=== PATIENT | female | born 1930 | race Hispanic/Latino ===

== ENCOUNTER → 2020-04-25 | Outpatient (CLI) | payer MEDICARE ==
[2020-04-25 15:56] LABS: CREATININE 0.7 mg/dL (0.5-1.5)
== END | disposition home or self-care (01) ==
LOC: RAH 10:00
PROVIDERS: ATTEND Internal Medicine Cardiovascular Disease
DX: I71.4 Abdominal aortic aneurysm, without rupture (principal)
CPT/HCPCS: 36415; 82565; 84520

== ENCOUNTER → 2020-04-27 | Outpatient (CLI) | payer MEDICARE ==
[~2020-04-27] MED LIST: IOHEXOL-350 75 ML VIAL IV ONE
== END | disposition home or self-care (01) ==
LOC: RAH 07:40
PROVIDERS: ATTEND Internal Medicine Cardiovascular Disease
DX: I71.4 Abdominal aortic aneurysm, without rupture (principal); N28.1 Cyst of kidney, acquired; J98.11 Atelectasis; I51.7 Cardiomegaly; K57.30 Diverticulosis of large intestine without perforation or abscess without bleeding; M47.815 Spondylosis without myelopathy or radiculopathy, thoracolumbar region
CPT/HCPCS: 74174; Q9967

== ENCOUNTER → 2020-05-16 | Outpatient (CLI) | payer MEDICARE ==
[~2020-05-16] VITALS: Ht 146.1 cm; Wt 49.7 kg
[~2020-05-16] MED LIST changes: +AEC81 PO; +CLOP75TA14 PO; +CLOPIDOGREL BISULFATE 300 MG TAB ONE; +DENO60DI SQ; -IOHEXOL-350 75 ML VIAL IV ONE; +OMEP20TA25 PO; +OS500 PO; +SERT25TA PO; +SERT50TA PO; +SODIUM CHLORIDE 0.9% 500ML 500 ML IV SCH; +TYLENOL ARTHRITIS PO; +VITAMIN D PO
[2020-05-16 09:32] LABS: BASOPHILS % (AUTO) 0.4 % (0.0-5.0); EOSINOPHILS % (AUTO) 1.4 % (0.0-8.0); HEMATOCRIT 38.2 % (36-48); LYMPHOCYTES % (AUTO) 24.5 % (21.0-51.0); MEAN CORPUSCULAR HEMOGLOBIN 26.5 pg (27.0-33.0); MEAN CORPUSCULAR HGB CONC 30.9 g/dL (32.0-36.0); MEAN CORPUSCULAR VOLUME 85.8 fL (79-99); MONOCYTES % (AUTO) 11.6 % (3.0-13.0); NEUTROPHILS % (AUTO) 61.7 % (40.0-77.0); PLATELET COUNT (AUTO) 160 K/uL (130-400); RED BLOOD CELL COUNT(AUTO) 4.45 MIL/uL (4.00-5.50); RED CELL DISTRIBUTION WIDTH 15.3 % (11.0-15.5)
[2020-05-16 09:42] LABS: APPEARANCE,URINE Clear (CLEAR); BILIRUBIN,URINE Negative (NEGATIVE); COLOR,URINE Yellow (YELLOW); GLUCOSE, URINE (UA) Negative (NEGATIVE); KETONES,URINE Negative (NEGATIVE); LEUKOCYTE ESTERASE ,URINE Moderate (NEGATIVE); NITRATE,URINE Negative (NEGATIVE); OCCULT BLOOD,URINE Negative (NEGATIVE); PH,URINE 6.5 (5.0-8.0); PROTEIN,URINE Negative (NEGATIVE); UROBILINOGEN,URINE 0.2 mg/dL (0.2-1.0)
[2020-05-16 09:44] LABS: CREATININE 0.5 mg/dL (0.5-1.5)
[2020-05-16 09:57] LABS: RBC,URINE 0-1 /HPF (0-1); WBC,URINE 0-1 /HPF (0-1)
[2020-05-16 09:58] LABS: BACTERIA,URINE Rare /HPF (None Seen); SQUAMOUS EPITHELIAL CELL,UR Rare /HPF (0-2)
[2020-05-16 10:02] LABS: INR 0.92 (0.85-1.15); PARTIAL THROMBOPLASTIN TIME 26.4 SEC (26.3-35.5)
[2020-05-18 10:03] VITALS: BP 151/82
--- NOTE | 2020-05-18 11:18 | NUR ---
ABNORMAL LABS REPORTED TO DR MORALES OFFICE
== END | disposition home or self-care (01) ==
LOC: EDSTATUS 08:00 → DAH 10:00
PROVIDERS: ATTEND Internal Medicine Cardiovascular Disease
DX: Z01.812 Encounter for preprocedural laboratory examination (principal); Z20.828 Contact with and (suspected) exposure to other viral communicable diseases
CPT/HCPCS: 36415; 71045; 80048; 81001; 85025; 85610; 85730; 86850; 86900; 86901; 87088; 93005; U0003; J7040

== ENCOUNTER 2020-05-18 21:15 | Inpatient (IN) | payer MEDICARE ==
[~2020-05-18] VITALS: Ht 149.9 cm; Wt 54.3 kg
[~2020-05-18 21:15] MED LIST changes: -AEC81 PO; -CLOP75TA14 PO; -CLOPIDOGREL BISULFATE 300 MG TAB ONE; -SODIUM CHLORIDE 0.9% 500ML 500 ML IV SCH
[2020-05-18 21:51] LABS: BASOPHILS % (AUTO) 0.4 % (0.0-5.0); EOSINOPHILS % (AUTO) 0.6 % (0.0-8.0); HEMATOCRIT 36.5 % (36-48); LYMPHOCYTES % (AUTO) 18.3 % (21.0-51.0); MEAN CORPUSCULAR HEMOGLOBIN 27.2 pg (27.0-33.0); MEAN CORPUSCULAR HGB CONC 31.8 g/dL (32.0-36.0); MEAN CORPUSCULAR VOLUME 85.7 fL (79-99); MONOCYTES % (AUTO) 7.3 % (3.0-13.0); NEUTROPHILS % (AUTO) 72.9 % (40.0-77.0); PLATELET COUNT (AUTO) 164 K/uL (130-400); RED BLOOD CELL COUNT(AUTO) 4.26 MIL/uL (4.00-5.50); RED CELL DISTRIBUTION WIDTH 15.7 % (11.0-15.5); WHITE BLOOD COUNT (AUTO) 7.8 K/uL (4.8-10.8)
[2020-05-18 21:57] LABS: INR 0.93 (0.85-1.15); PARTIAL THROMBOPLASTIN TIME 24.7 SEC (26.3-35.5); PROTHROMBIN TIME 10.1 SEC (9.6-11.6)
[2020-05-18 22:20] LABS: CREATININE 0.7 mg/dL (0.5-1.5); POTASSIUM 3.5 mmol/L (3.5-5.1)
[2020-05-18 22:25] LABS: ALBUMIN 3.6 g/dL (3.5-5.0); BILIRUBIN,TOTAL 0.2 mg/dL (0.2-1.0); TOTAL PROTEIN, SERUM 7.1 g/dL (6.0-8.3)
[2020-05-18] MEDS: SODIUM CHLORIDE 0.9% 1000ML 1,000 ML IV SCH (22:36)
[2020-05-18] MEDS ORDERED: GUAIFENESIN-DM 200/20 MG 10 ML PO PRN (22:45)
[2020-05-18] MEDS ORDERED: NITROGLYCERIN 0.4 MG SL TAB SL PRN (22:45)
[2020-05-18] MEDS ORDERED: MAG HYDROX/AL HYDROX/SIMETH 30 ML, LIDOCAINE HCL 2% VISCOUS 30 ML, DIPHENHYDRAMINE HCL ... PO PRN ×3 (22:45)
[2020-05-18] MEDS ORDERED: DiphenhydrAMINE HCL 50 MG/ML VIAL IV PRN (22:45)
[2020-05-18] MEDS ORDERED: ACETAMINOPHEN 325 MG TAB PO PRN (22:45)
[2020-05-18] MEDS ORDERED: LACTULOSE 20 GM/30 ML UDCUP PO PRN (22:45)
[2020-05-18] MEDS ORDERED: MAG HYDROX/AL HYDROX/SIMETH ES 30 ML SUSP UDCUP PO PRN (22:45)
[2020-05-18] MEDS ORDERED: DIPHENHYDRAMINE HCL 25 MG CAPSULE PO PRN (22:45)
[2020-05-18] MEDS ORDERED: LIDOCAINE HCL 2% VISCOUS 30 ML, MAG HYDROX/AL HYDROX/SIMETH 30 ML, BELLADONNA-PHENOBARB... PO PRN ×3 (22:45)
[2020-05-18] MEDS ORDERED: ZOLPIDEM TARTRATE 5 MG TAB PO PRN (22:45)
[2020-05-18] MEDS ORDERED: ONDANSETRON HCL 4 MG/2 ML VIAL IV PRN (22:45)
[2020-05-19] VITALS (14 sets, daily range): BP systolic 94–130; BP diastolic 44–60
[2020-05-19 04:24] LABS: BASOPHILS % (AUTO) 0.3 % (0.0-5.0); EOSINOPHILS % (AUTO) 1.4 % (0.0-8.0); HEMATOCRIT 36.9 % (36-48); LYMPHOCYTES % (AUTO) 26.4 % (21.0-51.0); MEAN CORPUSCULAR HEMOGLOBIN 26.5 pg (27.0-33.0); MEAN CORPUSCULAR HGB CONC 30.9 g/dL (32.0-36.0); MEAN CORPUSCULAR VOLUME 85.8 fL (79-99); MONOCYTES % (AUTO) 9.8 % (3.0-13.0); NEUTROPHILS % (AUTO) 61.6 % (40.0-77.0); PLATELET COUNT (AUTO) 157 K/uL (130-400); RED CELL DISTRIBUTION WIDTH 15.7 % (11.0-15.5); WHITE BLOOD COUNT (AUTO) 6.5 K/uL (4.8-10.8)
[2020-05-19 04:45] LABS: ALBUMIN 3.2 g/dL (3.5-5.0); BILIRUBIN,TOTAL 0.2 mg/dL (0.2-1.0); CREATININE 0.5 mg/dL (0.5-1.5); MAGNESIUM 1.9 mg/dL (1.80-2.40); PHOSPHORUS 2.9 mg/dL (2.5-4.9); POTASSIUM 3.5 mmol/L (3.5-5.1); TOTAL PROTEIN, SERUM 6.6 g/dL (6.0-8.3)
[2020-05-19] MEDS ORDERED: LIDOCAINE HCL 2% 20ML ONE (07:15)
[2020-05-19] MEDS ORDERED: SODIUM BICARB 50MEQ 50ML VIAL ONE (07:15)
[2020-05-19] MEDS ORDERED: HEPARIN SODIUM 1000UNIT/ML 10ML VIAL ONE (07:15)
[2020-05-19] MEDS ORDERED: IODIXANOL 320 MG/ML 100 ML VIAL ONE (07:27)
[2020-05-19] MEDS ORDERED: DEXAMETHASONE SOD PHOSPHATE 10MG/ML 1ML VIAL ONE (07:47)
[2020-05-19] MEDS ORDERED: LIDOCAINE PF 2% 5ML ABBOJECT ONE (07:47)
[2020-05-19] MEDS ORDERED: MIDAZOLAM HCL 1 MG/ML 2ML VIAL ONE ×2 (07:47→15:28)
[2020-05-19] MEDS ORDERED: ROCURONIUM 10MG/1ML SYR 10 MG/ML ML ONE ×2 (07:48→07:49)
[2020-05-19] MEDS ORDERED: ONDANSETRON HCL 4 MG/2 ML VIAL ONE (07:48)
[2020-05-19] MEDS ORDERED: NEOSTIGMINE 5MG/5ML SYR IV ONE (07:48)
[2020-05-19] MEDS ORDERED: PROPOFOL 10 MG/ML 20ML VIAL IV ONE (07:48)
[2020-05-19] MEDS ORDERED: GLYCOPYRROLATE 1 MG/5 ML SYRINGE ONE (07:48)
[2020-05-19] MEDS ORDERED: FENTANYL CITRATE PF 50 MCG/1 ML 2ML VIAL ONE ×2 (07:48→09:12)
[2020-05-19] MEDS ORDERED: EPHEDRINE SULFATE 50 MG/ML AMPULE ONE (07:49)
[2020-05-19] MEDS ORDERED: CEFAZOLIN SODIUM 1 GM VIAL ONE (07:58)
[2020-05-19] MEDS: SODIUM CHLORIDE 0.9% 1000ML 1,000 ML IV SCH (08:36)
[2020-05-19] MEDS: FAMOTIDINE/PF 20 MG/2 ML VIAL IV SCH ×2 (09:00→22:02)
[2020-05-19] MEDS ORDERED: ONDANSETRON HCL 4 MG/2 ML VIAL IVP SCH (14:45)
[2020-05-19] MEDS ORDERED: ASPIRIN 325MG EC TAB 325 MG TABLET.DR PO SCH (14:45)
[2020-05-19] MEDS ORDERED: MORPHINE SULFATE 4 MG/1ML SYG IVP SCH (14:45)
[2020-05-19] MEDS ORDERED: ACETAMINOPHEN 325 MG TAB PO PRN (14:45)
[2020-05-19] MEDS ORDERED: SODIUM CHLORIDE 0.9% 1000ML 1,000 ML IV SCH (14:45)
[2020-05-19] MEDS ORDERED: HYDRALAZINE HCL 20 MG/ML VIAL IV PRN (14:45)
[2020-05-19] MEDS ORDERED: PANTOPRAZOLE 40 MG/VIAL IVP SCH (14:45)
[2020-05-19] MEDS ORDERED: CLOPIDOGREL BISULFATE 300 MG TAB PO SCH (14:45)
[2020-05-19] MEDS: CEFAZOLIN SODIUM 1 GM VIAL IVP SCH (17:39)
[2020-05-19 19:03] LABS: INR 1.02 (0.85-1.15); PARTIAL THROMBOPLASTIN TIME 65.1 SEC (26.3-35.5)
[2020-05-19] MEDS ORDERED: MORPHINE SULFATE 4 MG/1ML SYG ONE (20:45)
[2020-05-19] MEDS ORDERED: ASPIRIN 325 MG TABLET ONE (20:46)
--- NOTE | 2020-05-19 21:35 | NUR ---
SHEATH BRACHIAL SHEATH REMOVED AT 2109 SEE POST CATH ASSESSMENT.
[2020-05-19] MEDS ORDERED: CLOPIDOGREL BISULFATE 300 MG TAB ONE (22:06)
--- NOTE | 2020-05-19 22:25 | NUR ---
RADIAL LEFT RADIAL A LINE REMOVED PRESSURE HELD X 5 MIN NO BLEEDING OR HEMATOMA NOTED POST REMOVAL. PT DID HAVE BRUISING AROUND SITE PRIOR TO REMOVAL DRESSING APPLIED. WILL CONTINUE TO MONITOR.
[2020-05-19] MEDS: ACETAMINOPHEN 325 MG TAB PO PRN (23:59)
[2020-05-20] VITALS (15 sets, daily range): BP systolic 90–146; BP diastolic 38–84
[2020-05-20] MEDS: CEFAZOLIN SODIUM 1 GM VIAL IVP SCH (00:11)
[2020-05-20 03:35] LABS: BASOPHILS % (AUTO) 0.2 % (0.0-5.0); EOSINOPHILS % (AUTO) 1.5 % (0.0-8.0); HEMATOCRIT 28.3 % (36-48); LYMPHOCYTES % (AUTO) 6.7 % (21.0-51.0); MEAN CORPUSCULAR HEMOGLOBIN 26.3 pg (27.0-33.0); MEAN CORPUSCULAR HGB CONC 30.4 g/dL (32.0-36.0); MEAN CORPUSCULAR VOLUME 86.5 fL (79-99); MONOCYTES % (AUTO) 7.4 % (3.0-13.0); NEUTROPHILS % (AUTO) 83.9 % (40.0-77.0); PLATELET COUNT (AUTO) 104 K/uL (130-400); RED BLOOD CELL COUNT(AUTO) 3.27 MIL/uL (4.00-5.50); RED CELL DISTRIBUTION WIDTH 15.8 % (11.0-15.5)
[2020-05-20 03:49] LABS: ALBUMIN 2.4 g/dL (3.5-5.0); BILIRUBIN,TOTAL 0.3 mg/dL (0.2-1.0); CREATININE 0.6 mg/dL (0.5-1.5); MAGNESIUM 1.3 mg/dL (1.80-2.40); PHOSPHORUS 2.8 mg/dL (2.5-4.9); POTASSIUM 3.5 mmol/L (3.5-5.1); TOTAL PROTEIN, SERUM 5.1 g/dL (6.0-8.3)
--- NOTE | 2020-05-20 06:00 | NUR ---
RAINEY RAINEY CATHETER REMOVED AT THIS TIME CATHETER AND BALLOON INTACT.
[2020-05-20] MEDS ORDERED: POTASSIUM CHLORIDE 10% ELIXIR 20 MEQ/15 ML UDCUP ONE (08:14)
[2020-05-20] MEDS: ASPIRIN 81 MG EC TAB PO SCH (08:19)
[2020-05-20] MEDS: PANTOPRAZOLE SODIUM 40 MG TABLET.DR PO SCH (08:19)
[2020-05-20] MEDS: CLOPIDOGREL BISULFATE 75 MG TAB PO SCH (08:19)
[2020-05-20] MEDS: FAMOTIDINE/PF 20 MG/2 ML VIAL IV SCH ×2 (08:20→21:20)
--- NOTE | 2020-05-20 13:00 | NUR ---
TO STAY INPATIENT [address] MORALES, PT OKAY TO BE DISCHARGED HOME. DR. BAUMANN SAW PT WANTS TO KEEP PT 1 MORE DAY FOR FURTHER OBSERVATION. PT IS CONFUSED AND IS TRYING TO REACH FOR THINGS ON THE FLOOR.
--- NOTE | 2020-05-20 16:50 | NUR ---
DC PLAN UPDATE. PATIENT LIVES ALONE. NEEDS ASSISTANCE WITH ADL'S. PROVIDER 28 HRS A WEEK USES A WALKER. FEELS SAFE TO RETURN HOME. Addendum: 05/20/20 at 1652 by FATEMEH PICKETT RN CM Amended: Links added.
[2020-05-20 18:03] LABS: HEMATOCRIT 26.3 % (36-48); MEAN CORPUSCULAR HEMOGLOBIN 26.7 pg (27.0-33.0); MEAN CORPUSCULAR HGB CONC 30.8 g/dL (32.0-36.0); MEAN CORPUSCULAR VOLUME 86.8 fL (79-99); RED BLOOD CELL COUNT(AUTO) 3.03 MIL/uL (4.00-5.50); WHITE BLOOD COUNT (AUTO) 9.3 K/uL (4.8-10.8)
[2020-05-20 18:12] LABS: CREATININE 0.8 mg/dL (0.5-1.5); POTASSIUM 3.6 mmol/L (3.5-5.1)
[2020-05-20] MEDS ORDERED: SODIUM CHLORIDE 0.9% 250 ML IV ONE (22:18)
[2020-05-20] MEDS ORDERED: POTASSIUM CHLORIDE 20 MEQ ERTAB PO PRN (22:30)
[2020-05-20] MEDS ORDERED: LIDOCAINE HCL-MPF 1% 2ML VIAL IV PRN (22:30)
[2020-05-20] MEDS ORDERED: MAGNESIUM 2GM PREMIX 50ML 50 ML IV PRN (22:30)
[2020-05-20] MEDS ORDERED: POTASSIUM CHLORIDE 20MEQ/100ML 100 ML IV PRN (22:30)
[2020-05-21 00:02] VITALS: BP 152/68
[2020-05-21] MEDS: POTASSIUM CHLORIDE 10% ELIXIR 20 MEQ/15 ML UDCUP PO PRN ×2 (00:04→02:19)
[2020-05-21 04:07] VITALS: BP 154/72
[2020-05-21 05:17] LABS: BASOPHILS % (AUTO) 0.3 % (0.0-5.0); EOSINOPHILS % (AUTO) 0.2 % (0.0-8.0); HEMATOCRIT 27.4 % (36-48); LYMPHOCYTES % (AUTO) 7.7 % (21.0-51.0); MEAN CORPUSCULAR HEMOGLOBIN 26.6 pg (27.0-33.0); MEAN CORPUSCULAR VOLUME 85.6 fL (79-99); MONOCYTES % (AUTO) 8.4 % (3.0-13.0); NEUTROPHILS % (AUTO) 82.6 % (40.0-77.0); PLATELET COUNT (AUTO) 99 K/uL (130-400); RED CELL DISTRIBUTION WIDTH 15.9 % (11.0-15.5); WHITE BLOOD COUNT (AUTO) 10.3 K/uL (4.8-10.8)
[2020-05-21 05:39] LABS: PLATELET MORPHOLOGY PLT CLUMPS PRESENT
[2020-05-21 05:43] LABS: ALBUMIN 2.9 g/dL (3.5-5.0); BILIRUBIN,TOTAL 0.6 mg/dL (0.2-1.0); CREATININE 0.6 mg/dL (0.5-1.5); MAGNESIUM 2.4 mg/dL (1.80-2.40); PHOSPHORUS 1.3 mg/dL (2.5-4.9); POTASSIUM 3.9 mmol/L (3.5-5.1); TOTAL PROTEIN, SERUM 6.1 g/dL (6.0-8.3)
[2020-05-21 08:00] VITALS: BP 160/86
[2020-05-21] MEDS ORDERED: CALCIUM CHLORIDE 100 MG/ML 10 ML SYG IVP SCH (08:15)
[2020-05-21] MEDS ORDERED: AEC81 PO ×2 (09:25)
[2020-05-21] MEDS ORDERED: CLOP75TA14 PO ×2 (09:25)
[2020-05-21] MEDS ORDERED: CALCIUM GLUCONATE 1 GM/10 ML VIAL IV SCH (09:30)
[2020-05-21] MEDS ORDERED: CALCIUM GLUCONATE 1 GM in SODIUM CHLORIDE 0.9% 100 ML IV SCH (09:45)
[2020-05-21] MEDS: CLOPIDOGREL BISULFATE 75 MG TAB PO SCH (10:06)
[2020-05-21] MEDS: FAMOTIDINE/PF 20 MG/2 ML VIAL IV SCH (10:06)
[2020-05-21] MEDS: ASPIRIN 81 MG EC TAB PO SCH (10:06)
[2020-05-21] MEDS: ACETAMINOPHEN 325 MG TAB PO PRN (10:08)
[2020-05-21] MEDS: PANTOPRAZOLE SODIUM 40 MG TABLET.DR PO SCH (10:08)
[2020-05-21 11:35] VITALS: BP 157/86
== END 2020-05-21 15:12 | disposition home or self-care (01) | DRG 268 ==
LOC: EDH 21:15 → EDHIP 22:36 → DAHIP 05-19 18:33 → 4BH 05-20 16:59
PROVIDERS: ADMIT Internal Medicine; ATTEND Internal Medicine
PROC: 047A3DZ Dilation of Left Renal Artery with Intraluminal Device, Percutaneous Approach (ICD-10-PCS; principal; 2020-05-19)
PROC: 04V03EZ Restriction of Abdominal Aorta with Branched or Fenestrated Intraluminal Device, One or Two Arteries, Percutaneous Approach (ICD-10-PCS; 2020-05-19)
PROC: 04H93DZ Insertion of Intraluminal Device into Right Renal Artery, Percutaneous Approach (ICD-10-PCS; 2020-05-19)
PROC: 04QL3ZZ Repair Left Femoral Artery, Percutaneous Approach (ICD-10-PCS; 2020-05-19)
PROC: 04QK3ZZ Repair Right Femoral Artery, Percutaneous Approach (ICD-10-PCS; 2020-05-19)
PROC: B4101ZZ Fluoroscopy of Abdominal Aorta using Low Osmolar Contrast (ICD-10-PCS; 2020-05-19)
PROC: B4181ZZ Fluoroscopy of Bilateral Renal Arteries using Low Osmolar Contrast (ICD-10-PCS; 2020-05-19)
DX: I71.4 Abdominal aortic aneurysm, without rupture (principal); G93.41 Metabolic encephalopathy; D62 Acute posthemorrhagic anemia; F05 Delirium due to known physiological condition; T82.538A Leakage of other cardiac and vascular devices and implants, initial encounter; E11.9 Type 2 diabetes mellitus without complications; M81.0 Age-related osteoporosis without current pathological fracture; I10 Essential (primary) hypertension; I25.10 Atherosclerotic heart disease of native coronary artery without angina pectoris; J44.9 Chronic obstructive pulmonary disease, unspecified; G30.9 Alzheimer's disease, unspecified; F02.80 Dementia in other diseases classified elsewhere, unspecified severity, without behavioral disturbance, psychotic disturbance, mood disturbance, and anxiety; Z90.710 Acquired absence of both cervix and uterus; Z86.73 Personal history of transient ischemic attack (TIA), and cerebral infarction without residual deficits; Z80.0 Family history of malignant neoplasm of digestive organs; Z80.6 Family history of leukemia; Z80.8 Family history of malignant neoplasm of other organs or systems; Z83.3 Family history of diabetes mellitus; Y71.8 Miscellaneous cardiovascular devices associated with adverse incidents, not elsewhere classified; Y92.9 Unspecified place or not applicable
CPT/HCPCS: 34705; 34709; 34712; 34713; 36252; 36415; 37236; 37237; 71045; 80048; 80053; 81001; 82550; 82948; 83605; 83735; 84100; 84484; 85025; 85027; 85347; 85610; 85730; 86850; 86900; 86901; 86922; 87088; 93005; A4344; C1725; C1760; C1769; C1874; C1876; C1887; C1894; G0378; J0610; J0690; J1100; J1644; J2001; J2250; J2270; J2405; J2704; J2710; J3010; J3490; J7040; J7050; Q9967; U0003

== ENCOUNTER → 2020-06-17 | Outpatient (CLI) | payer MEDICARE ==
[~2020-06-17] MED LIST changes: +ACET650T24 PO; +AEC81 PO; +CLOP75TA14 PO; +PANT40TA54 PO; +SERT25TA5 PO; -SERT50TA PO; +TRAM50TA4 PO
[2020-06-17 10:48] LABS: BASOPHILS % (AUTO) 0.3 % (0.0-5.0); EOSINOPHILS % (AUTO) 0.8 % (0.0-8.0); LYMPHOCYTES % (AUTO) 13.9 % (21.0-51.0); MEAN CORPUSCULAR HEMOGLOBIN 25.9 pg (27.0-33.0); MEAN CORPUSCULAR HGB CONC 30.3 g/dL (32.0-36.0); MEAN CORPUSCULAR VOLUME 85.5 fL (79-99); MONOCYTES % (AUTO) 9.7 % (3.0-13.0); NEUTROPHILS % (AUTO) 74.9 % (40.0-77.0); PLATELET COUNT (AUTO) 260 K/uL (130-400); RED BLOOD CELL COUNT(AUTO) 3.51 MIL/uL (4.00-5.50); RED CELL DISTRIBUTION WIDTH 14.6 % (11.0-15.5); WHITE BLOOD COUNT (AUTO) 7.8 K/uL (4.8-10.8)
[2020-06-17 10:56] LABS: CREATININE 0.7 mg/dL (0.5-1.5); POTASSIUM 3.8 mmol/L (3.5-5.1)
[2020-06-17 11:07] LABS: APPEARANCE,URINE TURBID (CLEAR); BILIRUBIN,URINE SMALL (NEGATIVE); COLOR,URINE YELLOW (YELLOW); GLUCOSE, URINE (UA) NEGATIVE (NEGATIVE); KETONES,URINE 5 mg/dL (NEGATIVE); LEUKOCYTE ESTERASE ,URINE MODERATE (NEGATIVE); NITRATE,URINE POSITIVE (NEGATIVE); OCCULT BLOOD,URINE MODERATE (NEGATIVE); PH,URINE 5.5 (5.0-8.0); PROTEIN,URINE 100 mg/dL (NEGATIVE); UROBILINOGEN,URINE 0.2 mg/dL (0.2-1.0)
[2020-06-17 11:31] LABS: INR 0.96 (0.85-1.15); PROTHROMBIN TIME 10.4 SEC (9.6-11.6)
[2020-06-17 11:44] LABS: BACTERIA,URINE Moderate /HPF (None Seen); RBC,URINE 0-1 /HPF (0-1); SQUAMOUS EPITHELIAL CELL,UR Rare /HPF (0-2); WBC,URINE TNTC /HPF (0-1)
== END | disposition home or self-care (01) ==
LOC: DAH 10:00 → EDSTATUS 06-22 09:00
PROVIDERS: ATTEND Internal Medicine Cardiovascular Disease
DX: Z01.812 Encounter for preprocedural laboratory examination (principal); T82.330A Leakage of aortic (bifurcation) graft (replacement), initial encounter
CPT/HCPCS: 36415; 80048; 81001; 85025; 85610; 85730; 87077; 87088; 87186; U0003

== ENCOUNTER 2020-06-27 14:00 | Inpatient (IN) | payer MEDICARE ==
[~2020-06-27] VITALS: Ht 146.1 cm; Wt 48.3 kg
[~2020-06-27 14:00] MED LIST changes: -ACET650T24 PO; -DENO60DI SQ; -OMEP20TA25 PO; -OS500 PO; -PANT40TA54 PO; -SERT25TA PO; -SERT25TA5 PO; -TRAM50TA4 PO; -TYLENOL ARTHRITIS PO; -VITAMIN D PO
[2020-06-27 14:31] VITALS: BP 157/70
[2020-06-27 16:22] LABS: BASOPHILS % (AUTO) 0.1 % (0.0-5.0); HEMATOCRIT 28.6 % (36-48); LYMPHOCYTES % (AUTO) 15.3 % (21.0-51.0); MEAN CORPUSCULAR HGB CONC 30.4 g/dL (32.0-36.0); MEAN CORPUSCULAR VOLUME 85.4 fL (79-99); MONOCYTES % (AUTO) 9.7 % (3.0-13.0); NEUTROPHILS % (AUTO) 72.4 % (40.0-77.0); PLATELET COUNT (AUTO) 251 K/uL (130-400); RED BLOOD CELL COUNT(AUTO) 3.35 MIL/uL (4.00-5.50); RED CELL DISTRIBUTION WIDTH 14.5 % (11.0-15.5); WHITE BLOOD COUNT (AUTO) 7.6 K/uL (4.8-10.8)
[2020-06-27 16:32] LABS: CREATININE 0.7 mg/dL (0.5-1.5); POTASSIUM 3.8 mmol/L (3.5-5.1)
[2020-06-27 16:34] LABS: INR 0.96 (0.85-1.15); PARTIAL THROMBOPLASTIN TIME 26.1 SEC (26.3-35.5); PROTHROMBIN TIME 10.4 SEC (9.6-11.6)
[2020-06-27 16:43] LABS: APPEARANCE,URINE Clear (CLEAR); BILIRUBIN,URINE Negative (NEGATIVE); COLOR,URINE Yellow (YELLOW); GLUCOSE, URINE (UA) Negative (NEGATIVE); KETONES,URINE Negative (NEGATIVE); LEUKOCYTE ESTERASE ,URINE Small (NEGATIVE); NITRATE,URINE Negative (NEGATIVE); OCCULT BLOOD,URINE Negative (NEGATIVE); PROTEIN,URINE Negative (NEGATIVE); UROBILINOGEN,URINE 0.2 mg/dL (0.2-1.0)
[2020-06-27 17:51] LABS: BACTERIA,URINE Few /HPF (None Seen); RBC,URINE 0-1 /HPF (0-1)
[2020-06-27 17:52] LABS: HYALINE CASTS, URINE 0-1 /LPF (0-1 /LPF); MUCUS,URINE Few LPF (None Seen); SQUAMOUS EPITHELIAL CELL,UR Few /HPF (0-2)
[2020-06-28] MEDS ORDERED: SODIUM CHLORIDE 0.9% 1000ML 1,000 ML IV SCH (11:00)
--- NOTE | 2020-06-28 15:17 | NUR ---
LABS ABNORMAL H&H REPORTED TO SERVANDO SMITH, NO FURTHER ORDERS GIVEN . OK TO PROCEED WITH PLANNED PROCEDURE
[2020-06-28] MEDS ORDERED: SERT25TA5 PO (15:50)
[2020-06-28] MEDS ORDERED: TRAM50TA4 PO (15:50)
[2020-06-28] MEDS ORDERED: PANT40TA54 PO (15:50)
[2020-06-28] MEDS ORDERED: ACET650T24 PO (15:50)
[2020-06-29] VITALS (27 sets, daily range): BP systolic 68–163; BP diastolic 29–82
[2020-06-29] MEDS ORDERED: CEFAZOLIN SODIUM 1 GM VIAL ONE ×2 (06:54→15:53)
[2020-06-29] MEDS ORDERED: IODIXANOL 320 MG/ML 100 ML VIAL ONE (06:54)
[2020-06-29] MEDS ORDERED: HEPARIN SODIUM 1000UNIT/ML 10ML VIAL ONE ×3 (06:54→14:39)
[2020-06-29] MEDS ORDERED: ONDANSETRON HCL 4 MG/2 ML VIAL ONE (07:16)
[2020-06-29] MEDS ORDERED: PHENYLEPHRINE HCL 10 MG/ML 1ML VIAL IV ONE (07:16)
[2020-06-29] MEDS ORDERED: LIDOCAINE PF 2% 5ML ABBOJECT ONE (07:16)
[2020-06-29] MEDS ORDERED: ROCURONIUM 10MG/1ML SYR 10 MG/ML ML ONE (07:17)
[2020-06-29] MEDS ORDERED: PROPOFOL 10 MG/ML 20ML VIAL IV ONE (07:17)
[2020-06-29] MEDS ORDERED: FENTANYL CITRATE PF 50 MCG/1 ML 2ML VIAL ONE (07:17)
[2020-06-29 12:37] LABS: HEMATOCRIT 28.9 % (36-48)
--- NOTE | 2020-06-29 13:07 | NUR ---
DC PLAN PATIENT LIVES ALONE. INDEPENDENT ABLE TO PERFORM ADL'S. PATIENT HAS NO DME'S. PROVIDER NEVA CASTAÑEDA [phone]. FEELS SAFE TO RETURN HOME. Addendum: 06/29/20 at 1309 by FATEMEH PICKETT RN CM Amended: Links added.
[2020-06-29 15:22] LABS: HEMATOCRIT 26.8 % (36-48)
[2020-06-29] MEDS ORDERED: MEPERIDINE-PF 25 MG/ML SYG ONE ×3 (16:42→22:50)
[2020-06-29] MEDS ORDERED: NEOSTIGMINE 5MG/5ML SYR IV ONE (16:50)
[2020-06-29] MEDS ORDERED: GLUCAGON 1MG KIT 1 MG ML IM PRN (17:15)
[2020-06-29] MEDS ORDERED: SODIUM CHLORIDE 0.9% 1000ML 1,000 ML IV SCH (17:15)
[2020-06-29] MEDS ORDERED: DEXTROSE 50%-WATER 50 ML DISP.SYRIN IV PRN (17:15)
--- NOTE | 2020-06-29 18:00 | NUR ---
POST PROCEDURE Received pt to day pt area, room 1A, post procedure. Lethargic. SB on tele. VS as recorded. Skin is cold, dry. Unable to obtain temperature reading so daniel hugger blanket applied. Left upper chest drsg is clean, dry without bleeding/oozing noted. PIV to LW patent - converted to SL. RAC PIV patent - NS @100ml/hr initiated as ordered. Abd round, soft with decreased bowel sounds. Pressure drsgs in place to both groins. No evidence of bleeding - no hematoma noted to either groin. Pt grimaced with palpation of groins. Pedal pulses palpable bilaterally. F/C patent - clear yellow urine. Assessment completed/recorded.
[2020-06-29] MEDS ORDERED: MEPERIDINE-PF 25 MG/ML SYG IVP ONE ×2 (18:31→18:45)
--- NOTE | 2020-06-29 18:35 | NUR ---
HOSPITALIST CHG answering service contacted to inform education coordinatormen's furnishings salesperson of pt admission/location - pending return call from education coordinator [employer].
[2020-06-29] MEDS ORDERED: NOREPINEPHRINE 4MG/NS 250ML 250 ML IV PRN (20:30)
[2020-06-29] MEDS: INSULIN HUMULIN R 100 UNIT/ML 3ML SQ SCH (21:00)
[2020-06-29 21:26] LABS: HEMATOCRIT 26.6 % (36-48)
[2020-06-29 21:29] LABS: BASOPHILS % (AUTO) 0.1 % (0.0-5.0); HEMATOCRIT 26.4 % (36-48); LYMPHOCYTES % (AUTO) 4.7 % (21.0-51.0); MEAN CORPUSCULAR HEMOGLOBIN 27.3 pg (27.0-33.0); MEAN CORPUSCULAR HGB CONC 32.2 g/dL (32.0-36.0); MEAN CORPUSCULAR VOLUME 84.9 fL (79-99); MONOCYTES % (AUTO) 5.5 % (3.0-13.0); PLATELET COUNT (AUTO) 181 K/uL (130-400); RED BLOOD CELL COUNT(AUTO) 3.11 MIL/uL (4.00-5.50); RED CELL DISTRIBUTION WIDTH 14.4 % (11.0-15.5); WHITE BLOOD COUNT (AUTO) 17.9 K/uL (4.8-10.8)
[2020-06-29] MEDS ORDERED: MORPHINE SULFATE 2 MG/ML 1ML SYG IVP PRN (21:30)
[2020-06-29 21:47] LABS: CREATININE 0.7 mg/dL (0.5-1.5); POTASSIUM 3.7 mmol/L (3.5-5.1)
[2020-06-29] MEDS: LIDOCAINE 5% TOPICAL PATCH TP SCH (23:14)
[2020-06-30] VITALS (26 sets, daily range): BP systolic 115–173; BP diastolic 38–84
[2020-06-30] MEDS ORDERED: CEFAZOLIN SODIUM 1 GM VIAL IVP SCH
[2020-06-30] MEDS: SERTRALINE HCL 50 MG TABLET PO SCH ×2 (00:04→22:05)
[2020-06-30 06:12] LABS: HEMATOCRIT 22.1 % (36-48); MEAN CORPUSCULAR HEMOGLOBIN 27.3 pg (27.0-33.0); MEAN CORPUSCULAR VOLUME 82.8 fL (79-99); RED BLOOD CELL COUNT(AUTO) 2.67 MIL/uL (4.00-5.50); RED CELL DISTRIBUTION WIDTH 14.6 % (11.0-15.5)
[2020-06-30 06:31] LABS: CREATININE 0.8 mg/dL (0.5-1.5); POTASSIUM 3.6 mmol/L (3.5-5.1)
[2020-06-30] MEDS: INSULIN HUMULIN R 100 UNIT/ML 3ML SQ SCH ×4 (07:03→21:00)
--- NOTE | 2020-06-30 08:00 | NUR ---
ASSESSMENT Resting quietly in bed. Reports lower abd discomfort - pending ABD US this AM. Pt advised. Will keep pt NPO. ANITHA Corey, in to see pt. Bilateral groin drsgs removed by him. No evidence of ongoing bleeding. No evidence of hematoma to either groin. Will redress right groin secondary to soiling of present drsg. BLE's warm to touch. Pedal pulses are palpable. Tenderness to procedural sites to both groins. Left upper chest drsg clean, dry. Bruising noted without bleeding/oozing or hematoma noted. Tenderness with palpation. Breath sounds clear throughout. Diminished bowel sounds. Abd soft but tender to lower quads with palpation. SR on tele. Denies chest pain or pressure. Remains on room air. Denies nausea or acute abd pain. IV lines/tubes as documented. Assessment completed/recorded.
[2020-06-30] MEDS: LIDOCAINE 5% TOPICAL PATCH TP SCH (09:00)
--- NOTE | 2020-06-30 09:30 | NUR ---
FAMILY VISIT Pt's daughter in to see pt - updated. Questions addressed. Pt is in no acute distress.
--- NOTE | 2020-06-30 10:30 | NUR ---
PT CARE Transfusion of single unit of PRBC's initiated. Will observe pt tolerance.
--- NOTE | 2020-06-30 10:50 | NUR ---
STATUS Transfusion ongoing. Pt tolerating without evidence of reaction. No complaints voiced by pt.
[2020-06-30] MEDS: ASPIRIN 81 MG EC TAB PO SCH (11:45)
[2020-06-30] MEDS: CLOPIDOGREL BISULFATE 75 MG TAB PO SCH (11:45)
[2020-06-30] MEDS: ACETAMINOPHEN 325 MG TAB PO PRN ×2 (11:46→21:00)
[2020-06-30] MEDS: PANTOPRAZOLE SODIUM 40 MG TABLET.DR PO SCH (11:58)
--- NOTE | 2020-06-30 13:00 | NUR ---
PT CARE Assisted OOB to bedside commode. Pt with poor activity tolerance secondary to pain and generalized weakness. Assisted back to bed after abbreviated attempt to have BM. Positioned for comfort.
--- NOTE | 2020-06-30 18:35 | NUR ---
TRANSFER Transferred by wheelchair to room 404.
[2020-06-30 22:38] LABS: HEMATOCRIT 25.1 % (36-48)
[2020-07-01 04:00] VITALS: BP 161/90
[2020-07-01] MEDS: INSULIN HUMULIN R 100 UNIT/ML 3ML SQ SCH (05:43)
[2020-07-01 05:52] LABS: HEMOGLOBIN A1C 5.6 % (4.0-6.0)
[2020-07-01 05:54] LABS: BASOPHILS % (AUTO) 0.2 % (0.0-5.0); EOSINOPHILS % (AUTO) 0.1 % (0.0-8.0); HEMATOCRIT 25.7 % (36-48); LYMPHOCYTES % (AUTO) 6.4 % (21.0-51.0); MEAN CORPUSCULAR HEMOGLOBIN 28.1 pg (27.0-33.0); MEAN CORPUSCULAR HGB CONC 33.5 g/dL (32.0-36.0); MONOCYTES % (AUTO) 9.2 % (3.0-13.0); NEUTROPHILS % (AUTO) 83.1 % (40.0-77.0); PLATELET COUNT (AUTO) 121 K/uL (130-400); RED BLOOD CELL COUNT(AUTO) 3.06 MIL/uL (4.00-5.50); RED CELL DISTRIBUTION WIDTH 14.5 % (11.0-15.5); WHITE BLOOD COUNT (AUTO) 13.1 K/uL (4.8-10.8)
[2020-07-01 06:13] LABS: ALBUMIN 2.4 g/dL (3.5-5.0); BILIRUBIN,TOTAL 0.7 mg/dL (0.2-1.0); CREATININE 0.6 mg/dL (0.5-1.5); TOTAL PROTEIN, SERUM 5.5 g/dL (6.0-8.3)
[2020-07-01 07:00] VITALS: BP 152/75
[2020-07-01] MEDS ORDERED: POTASSIUM CHLORIDE 20MEQ/100ML 100 ML IV PRN (07:15)
[2020-07-01] MEDS ORDERED: POTASSIUM CHLORIDE 10% ELIXIR 20 MEQ/15 ML UDCUP PO PRN (07:15)
[2020-07-01] MEDS ORDERED: LIDOCAINE HCL-MPF 1% 2ML VIAL IV PRN (07:15)
[2020-07-01] MEDS ORDERED: POTASSIUM CHLORIDE 20 MEQ ERTAB PO PRN (07:15)
[2020-07-01] MEDS ORDERED: MAGNESIUM 2GM PREMIX 50ML 50 ML IV PRN (07:30)
--- NOTE | 2020-07-01 07:45 | NUR ---
ASSESSMENT ENCOUNTERED PT A&OX3, CALM COOPERATIVE AND DOES NOT APPEAR TO BE IN ANY DISTRESS NOR ANY NEURO DEFICITS PRESENT. PT DENIES PAIN, SOB, NAUSEA. RT AND LEFT GROIN SITES DRY AND INTACT, DP/PT PULSES PALPABLE. PT IS AMBULATORY, GAIT STEADY AND STRONG WITH ASSIST. CALL LIGHT WITHIN REACH, FAMILY AT BEDSIDE.
[2020-07-01] MEDS: ACETAMINOPHEN 325 MG TAB PO PRN (09:14)
[2020-07-01] MEDS: PANTOPRAZOLE SODIUM 40 MG TABLET.DR PO SCH (09:14)
[2020-07-01] MEDS: ASPIRIN 81 MG EC TAB PO SCH (09:14)
[2020-07-01] MEDS: CLOPIDOGREL BISULFATE 75 MG TAB PO SCH (09:14)
[2020-07-01] MEDS: LIDOCAINE 5% TOPICAL PATCH TP SCH (09:16)
[2020-07-01 11:00] VITALS: BP 160/65
[2020-07-01 13:34] VITALS: BP 144/69
[2020-07-01 13:40] LABS: MAGNESIUM 2.6 mg/dL (1.80-2.40); POTASSIUM 4.2 mmol/L (3.5-5.1)
--- NOTE | 2020-07-01 15:00 | NUR ---
DISCHARGE INSTRUCTIONS GIVEN, PIV REMOVED AND INTACT, DISCHARGED HOME TO FAMILY VEHICLE VIA WHEELCHAIR.
== END 2020-07-01 15:00 | disposition home or self-care (01) | DRG 220 ==
LOC: EDSTATUS 14:00 → DAHIP 06-29 05:40 → INTOOBSV 06-29 05:40 → OBSVTOIN 06-29 05:40 → 4AH 06-30 19:01
PROVIDERS: ADMIT Internal Medicine; ATTEND Internal Medicine
PROC: 04V03DZ Restriction of Abdominal Aorta with Intraluminal Device, Percutaneous Approach (ICD-10-PCS; 2020-06-29)
PROC: 04U Lower Arteries, Supplement (ICD-10-PCS; 2020-06-29)
PROC: 04U Lower Arteries, Supplement (ICD-10-PCS; 2020-06-29)
PROC: 047A3ZZ Dilation of Left Renal Artery, Percutaneous Approach (ICD-10-PCS; 2020-06-29)
PROC: 04U Lower Arteries, Supplement (ICD-10-PCS; 2020-06-29)
PROC: 04753ZZ Dilation of Superior Mesenteric Artery, Percutaneous Approach (ICD-10-PCS; 2020-06-29)
PROC: 04713DZ Dilation of Celiac Artery with Intraluminal Device, Percutaneous Approach (ICD-10-PCS; 2020-06-29)
PROC: B4181ZZ Fluoroscopy of Bilateral Renal Arteries using Low Osmolar Contrast (ICD-10-PCS; 2020-06-29)
PROC: B41B1ZZ Fluoroscopy of Other Intra-Abdominal Arteries using Low Osmolar Contrast (ICD-10-PCS; 2020-06-29)
PROC: B4141ZZ Fluoroscopy of Superior Mesenteric Artery using Low Osmolar Contrast (ICD-10-PCS; 2020-06-29)
PROC: B4101ZZ Fluoroscopy of Abdominal Aorta using Low Osmolar Contrast (ICD-10-PCS; 2020-06-29)
PROC: 02VW3DZ Restriction of Thoracic Aorta, Descending with Intraluminal Device, Percutaneous Approach (ICD-10-PCS; principal; 2020-06-29 13:00)
DX: T82.339A Leakage of unspecified vascular graft, initial encounter (principal); K55.1 Chronic vascular disorders of intestine; N28.0 Ischemia and infarction of kidney; D62 Acute posthemorrhagic anemia; I71.4 Abdominal aortic aneurysm, without rupture; I70.8 Atherosclerosis of other arteries; E87.70 Fluid overload, unspecified; Z79.01 Long term (current) use of anticoagulants; Z79.899 Other long term (current) drug therapy; Z80.0 Family history of malignant neoplasm of digestive organs; Z80.6 Family history of leukemia; Z80.8 Family history of malignant neoplasm of other organs or systems; Z86.73 Personal history of transient ischemic attack (TIA), and cerebral infarction without residual deficits; Z90.710 Acquired absence of both cervix and uterus; E11.51 Type 2 diabetes mellitus with diabetic peripheral angiopathy without gangrene; Y71.8 Miscellaneous cardiovascular devices associated with adverse incidents, not elsewhere classified; Y92.89 Other specified places as the place of occurrence of the external cause
CPT/HCPCS: 33886; 34710; 34713; 34716; 36245; 36252; 36415; 36430; 37236; 37237; 71045; 75726; 76700; 80048; 80053; 81001; 82947; 82948; 83036; 83735; 84132; 85014; 85018; 85025; 85027; 85610; 85730; 86850; 86900; 86901; 86923; 93005; A4344; A4606; C1725; C1760; C1769; C1887; C1893; C1894; G0378; J0690; J1644; J2001; J2175; J2370; J2405; J2704; J2710; J3010; J3475; J3480; J3490; J7030; J7040; J7120; P9016; Q9967; U0003

== ENCOUNTER → 2020-07-04 | Outpatient (CLI) | payer MEDICARE ==
[~2020-07-04] MED LIST changes: +ACET650T24 PO; +PANT40TA54 PO; +SERT25TA5 PO; +TRAM50TA4 PO
[2020-07-04 10:45] LABS: BASOPHILS % (AUTO) 0.2 % (0.0-5.0); EOSINOPHILS % (AUTO) 0.4 % (0.0-8.0); HEMATOCRIT 28.5 % (36-48); LYMPHOCYTES % (AUTO) 10.9 % (21.0-51.0); MEAN CORPUSCULAR HEMOGLOBIN 27.8 pg (27.0-33.0); MEAN CORPUSCULAR HGB CONC 31.9 g/dL (32.0-36.0); MEAN CORPUSCULAR VOLUME 87.2 fL (79-99); NEUTROPHILS % (AUTO) 76.9 % (40.0-77.0); PLATELET COUNT (AUTO) 162 K/uL (130-400); RED BLOOD CELL COUNT(AUTO) 3.27 MIL/uL (4.00-5.50); RED CELL DISTRIBUTION WIDTH 15.5 % (11.0-15.5)
[2020-07-04 11:07] LABS: BILIRUBIN,TOTAL 0.7 mg/dL (0.2-1.0); CREATININE 0.6 mg/dL (0.5-1.5); POTASSIUM 3.6 mmol/L (3.5-5.1); TOTAL PROTEIN, SERUM 6.5 g/dL (6.0-8.3)
== END | disposition home or self-care (01) ==
LOC: LAB 09:31
PROVIDERS: ATTEND Internal Medicine Cardiovascular Disease
DX: I71.4 Abdominal aortic aneurysm, without rupture (principal)
CPT/HCPCS: 36415; 80053; 85025

== ENCOUNTER 2021-07-16 20:17 | Inpatient (IN) | payer MEDICARE ==
[~2021-07-16] VITALS: Ht 144.8 cm; Wt 40.8 kg
[~2021-07-16 20:17] MED LIST changes: +SERT-438 PO; -SERT25TA5 PO
[2021-07-16 20:57] LABS: BASOPHILS % (AUTO) 0.2 % (0.0-5.0); EOSINOPHILS % (AUTO) 0.4 % (0.0-8.0); HEMATOCRIT 28.4 % (36-48); LYMPHOCYTES % (AUTO) 2.6 % (21.0-51.0); MEAN CORPUSCULAR HEMOGLOBIN 26.8 pg (27.0-33.0); MEAN CORPUSCULAR VOLUME 86.6 fL (79-99); MONOCYTES % (AUTO) 5.3 % (3.0-13.0); NEUTROPHILS % (AUTO) 90.6 % (40.0-77.0); PLATELET COUNT (AUTO) 115 K/uL (130-400); RED BLOOD CELL COUNT(AUTO) 3.28 MIL/uL (4.00-5.50); RED CELL DISTRIBUTION WIDTH 16.1 % (11.0-15.5); WHITE BLOOD COUNT (AUTO) 24.3 K/uL (4.8-10.8)
[2021-07-16 20:59] LABS: APPEARANCE,URINE Cloudy (CLEAR); BILIRUBIN,URINE Negative (NEGATIVE); COLOR,URINE Dark Yellow (YELLOW); GLUCOSE, URINE (UA) Negative (NEGATIVE); KETONES,URINE Trace mg/dL (NEGATIVE); LEUKOCYTE ESTERASE ,URINE Small (NEGATIVE); NITRATE,URINE Negative (NEGATIVE); OCCULT BLOOD,URINE Moderate (NEGATIVE); PH,URINE 5.5 (5.0-8.0); PROTEIN,URINE 300 mg/dL (NEGATIVE)
[2021-07-16] MEDS: 0.9%NACL 1000ML 1,000 ML IV SCH ×2 (21:04→21:30)
[2021-07-16 21:08] LABS: CARBON DIOXIDE 25 mmol/L (21-32); CHLORIDE 101 mmol/L (101-111); CREATININE 1.2 mg/dL (0.5-1.5); GLOMERULAR FILTR. RATE CALC 45 mL/min (>60); GLUCOSE,RANDOM 261 mg/dL (70-105); POTASSIUM 4.5 mmol/L (3.5-5.1); SODIUM SERUM 139 mmol/L (136-145); UREA NITROGEN, BLOOD 23 mg/dL (7-18)
[2021-07-16 21:09] LABS: BACTERIA,URINE Few /HPF (None Seen); MUCUS,URINE Moderate LPF (None Seen); SQUAMOUS EPITHELIAL CELL,UR Few /HPF (0-2)
[2021-07-16 21:17] LABS: ALANINE AMINOTRANSFERASE 20 U/L (12-78); ALBUMIN 3.1 g/dL (3.5-5.0); ASPARTATE AMINOTRANSFERASE 25 U/L (10-37); BILIRUBIN,TOTAL 1.1 mg/dL (0.2-1.0); TOTAL PROTEIN, SERUM 6.1 g/dL (6.0-8.3)
[2021-07-16 21:20] LABS: LIPASE < 50 U/L (114-286)
[2021-07-16] MEDS ORDERED: ACETAMINOPHEN 325 MG TAB PO PRN ×2 (21:30)
[2021-07-16] MEDS ORDERED: HYDRALAZINE 20MG/ML VIAL IV PRN (21:30)
[2021-07-16] MEDS ORDERED: NITROGLYCERIN 0.4 MG SL TAB SL PRN (21:30)
[2021-07-16] MEDS ORDERED: ONDANSETRON 4MG INJ IV PRN (21:30)
[2021-07-16 21:55] LABS: INR 1.21 (0.85-1.15)
[2021-07-16 21:56] LABS: PARTIAL THROMBOPLASTIN TIME 23.2 SEC (26.3-35.5)
[2021-07-16 22:50] LABS: ABG BASE EXCESS 1.2 mmol/L (-2.0-3.0); ABG HCO3 23.5 mmol/L (21.0-28.0); ABG PCO2 31 mmHg (32-45)
[2021-07-16] MEDS ORDERED: IOHEXOL 350 MG/ML 100ML INFUS..BTL IV ONE (23:32)
[2021-07-17] VITALS (15 sets, daily range): BP systolic 119–151; BP diastolic 44–91
[2021-07-17] MEDS: ZOSYN 3.375GM+NS 50ML 50 ML IV SCH ×4 (00:03→20:11)
[2021-07-17] MEDS: 0.9%NACL 1000ML 1,000 ML IV SCH ×3 (03:40→10:20)
[2021-07-17] MEDS: INSULIN HUMULIN R 100 UNIT/ML 3ML SQ SCH ×6 (07:30→21:00)
[2021-07-17 08:05] LABS: BASOPHILS % (AUTO) 0.1 % (0.0-5.0); MEAN CORPUSCULAR HEMOGLOBIN 26.5 pg (27.0-33.0); MEAN CORPUSCULAR HGB CONC 31.2 g/dL (32.0-36.0); MEAN CORPUSCULAR VOLUME 84.9 fL (79-99); MONOCYTES % (AUTO) 8.1 % (3.0-13.0); NEUTROPHILS % (AUTO) 84.3 % (40.0-77.0); PLATELET COUNT (AUTO) 90 K/uL (130-400); RED BLOOD CELL COUNT(AUTO) 2.38 MIL/uL (4.00-5.50); RED CELL DISTRIBUTION WIDTH 16.1 % (11.0-15.5); WHITE BLOOD COUNT (AUTO) 12.3 K/uL (4.8-10.8)
[2021-07-17] MEDS: PANTOPRAZOLE 40 MG/VIAL IVP SCH (08:18)
[2021-07-17 08:23] LABS: HEMATOCRIT 20.2 % (36-48)
[2021-07-17 08:38] LABS: POTASSIUM 3.7 mmol/L (3.5-5.1)
[2021-07-17] MEDS ORDERED: ENOXAPARIN SODIUM 40 MG/0.4 ML SYRINGE SQ SCH (09:00)
[2021-07-17] MEDS ORDERED: LACTATED RINGERS 1000ML 1,000 ML IV SCH (11:00)
[2021-07-17] MEDS ORDERED: ESMOLOL HCL 2,500 MG in 0.9% NACL 250ML 250 ML IV SCH (13:30)
[2021-07-17] MEDS ORDERED: FUROSEMIDE 20MG VIAL IV ONE (14:30)
[2021-07-18] VITALS (48 sets, daily range): BP systolic 92–154; BP diastolic 40–75
[2021-07-18 03:55] LABS: HEMATOCRIT 21.2 % (36-48); MEAN CORPUSCULAR HEMOGLOBIN 26.3 pg (27.0-33.0); MEAN CORPUSCULAR HGB CONC 31.6 g/dL (32.0-36.0); MEAN CORPUSCULAR VOLUME 83.1 fL (79-99); RED BLOOD CELL COUNT(AUTO) 2.55 MIL/uL (4.00-5.50); RED CELL DISTRIBUTION WIDTH 16.2 % (11.0-15.5); WHITE BLOOD COUNT (AUTO) 11.1 K/uL (4.8-10.8)
[2021-07-18 04:12] LABS: ALBUMIN 2.7 g/dL (3.5-5.0); CREATININE 1.2 mg/dL (0.5-1.5); POTASSIUM 3.3 mmol/L (3.5-5.1); TOTAL PROTEIN, SERUM 5.7 g/dL (6.0-8.3)
[2021-07-18] MEDS ORDERED: 0.9% NACL 500ML IV.SOLN 500 ML IV ONE (05:39)
[2021-07-18] MEDS: INSULIN HUMULIN R 100 UNIT/ML 3ML SQ SCH ×4 (07:30→21:00)
[2021-07-18] MEDS: KCL 20 MEQ ERTAB PO SCH (07:59)
[2021-07-18] MEDS: PANTOPRAZOLE 40 MG/VIAL IVP SCH (07:59)
[2021-07-18] MEDS: LABETALOL HCL 200 MG TABLET PO SCH ×2 (07:59→21:00)
[2021-07-18] MEDS: ZOSYN 3.375GM+NS 50ML 50 ML IV SCH ×3 (11:33→20:38)
[2021-07-19] VITALS (15 sets, daily range): BP systolic 93–149; BP diastolic 45–87
[2021-07-19 03:56] LABS: BASOPHILS % (AUTO) 0.3 % (0.0-5.0); EOSINOPHILS % (AUTO) 1.1 % (0.0-8.0); HEMATOCRIT 24.3 % (36-48); MEAN CORPUSCULAR HEMOGLOBIN 27.2 pg (27.0-33.0); MEAN CORPUSCULAR HGB CONC 31.7 g/dL (32.0-36.0); MEAN CORPUSCULAR VOLUME 85.9 fL (79-99); MONOCYTES % (AUTO) 7.7 % (3.0-13.0); NEUTROPHILS % (AUTO) 79.2 % (40.0-77.0); NUCLEATED RED BLOOD CELLS 0.2 % (0.0-0.19); PLATELET COUNT (AUTO) 147 K/uL (130-400); RED BLOOD CELL COUNT(AUTO) 2.83 MIL/uL (4.00-5.50); RED CELL DISTRIBUTION WIDTH 15.7 % (11.0-15.5); WHITE BLOOD COUNT (AUTO) 9.4 K/uL (4.8-10.8)
[2021-07-19 04:13] LABS: POTASSIUM 4.1 mmol/L (3.5-5.1)
[2021-07-19] MEDS: ZOSYN 3.375GM+NS 50ML 50 ML IV SCH ×2 (06:01→12:54)
[2021-07-19] MEDS: LABETALOL HCL 200 MG TABLET PO SCH (06:02)
[2021-07-19] MEDS: KCL 20 MEQ ERTAB PO SCH (06:40)
[2021-07-19] MEDS: INSULIN HUMULIN R 100 UNIT/ML 3ML SQ SCH ×2 (06:40→11:30)
[2021-07-19] MEDS: PANTOPRAZOLE 40 MG/VIAL IVP SCH (08:28)
== END 2021-07-19 16:11 | disposition hospice, home (50) | DRG 871 ==
LOC: EDH 20:17 → EDHIP 21:25 → 2CH 07-17 12:00
PROVIDERS: ADMIT Internal Medicine; ATTEND Internal Medicine
PROC: 30233R1 Transfusion of Nonautologous Platelets into Peripheral Vein, Percutaneous Approach (ICD-10-PCS; principal; 2021-07-17)
PROC: 30233N1 Transfusion of Nonautologous Red Blood Cells into Peripheral Vein, Percutaneous Approach (ICD-10-PCS; 2021-07-17)
DX: A41.9 Sepsis, unspecified organism (principal); J18.9 Pneumonia, unspecified organism; D62 Acute posthemorrhagic anemia; N39.0 Urinary tract infection, site not specified; T82.310A Breakdown (mechanical) of aortic (bifurcation) graft (replacement), initial encounter; R58 Hemorrhage, not elsewhere classified; E11.9 Type 2 diabetes mellitus without complications; M81.0 Age-related osteoporosis without current pathological fracture; K21.9 Gastro-esophageal reflux disease without esophagitis; Z66 Do not resuscitate; E27.8 Other specified disorders of adrenal gland; R53.81 Other malaise; K59.00 Constipation, unspecified; Z90.710 Acquired absence of both cervix and uterus; Z86.79 Personal history of other diseases of the circulatory system; Z51.5 Encounter for palliative care; Z80.0 Family history of malignant neoplasm of digestive organs; Z80.8 Family history of malignant neoplasm of other organs or systems; Z80.6 Family history of leukemia; Y83.8 Other surgical procedures as the cause of abnormal reaction of the patient, or of later complication, without mention of misadventure at the time of the procedure; Y92.89 Other specified places as the place of occurrence of the external cause; Z20.822 Contact with and (suspected) exposure to COVID-19
CPT/HCPCS: 36415; 36430; 36600; 71045; 74174; 74176; 80048; 80053; 81001; 82803; 82948; 83605; 83690; 83735; 83880; 84145; 84484; 85018; 85025; 85027; 85378; 85610; 85730; 86140; 86850; 86900; 86901; 86923; 87040; 87088; 87635; 87804; 93005; 97039; C9113; G0378; J1940; J2543; J3490; J7030; J7040; J7050; P9016; P9034; Q9967